=== PATIENT | male | born 1990 | race Two or more races ===

== ENCOUNTER 2016-08-20 18:52 | Emergency (ER) | payer MEDICAID, OTHER ==
[~2016-08-20] VITALS: Ht 172.7 cm; Wt 78.0 kg
[2016-08-20] MEDS ORDERED: SODIUM CHLORIDE 0.9% 1,000 ML IV ONE (20:59)
[2016-08-20] MEDS ORDERED: VISCOUS LIDOCAINE 2% 15 ML UDC PO STA (20:59)
[2016-08-20] MEDS ORDERED: FAMOTIDINE 20MG/2ML VIAL IV STA (20:59)
[2016-08-20] MEDS ORDERED: MAGNESIUM/ALUMINUM HYDROXIDE/SIMETHICONE 30ML UDC PO STA (20:59)
[2016-08-20] MEDS ORDERED: KETOROLAC 30MG/ML VIAL IV STA (20:59)
[2016-08-20] MEDS ORDERED: ONDANSETRON HCL 4MG/2ML VIAL IV ONE (21:00)
[2016-08-20 22:45] VITALS: BP 121/69
== END 2016-08-20 22:58 | disposition home or self-care (01) ==
LOC: ER 20:56
DX: K21.9 Gastro-esophageal reflux disease without esophagitis (principal)
CPT/HCPCS: 96361; 96374; 96375; 99284; J1885; J2405; J3490; J7030; Z7610

== ENCOUNTER 2022-01-07 20:36 | Emergency (ER) | payer MEDICAID, OTHER ==
[~2022-01-07] VITALS: Ht 172.7 cm; Wt 80.1 kg
[2022-01-07] MEDS ORDERED: ACETAMINOPHEN WITH CODEINE 300/30MG TABLET PO STA (23:55)
[2022-01-07] MEDS ORDERED: KETOROLAC 60MG/2ML VIAL IM STA (23:55)
[2022-01-08] MEDS ORDERED: T3 PO (01:40)
[2022-01-08] MEDS ORDERED: NAPR-681 PO (01:40)
[2022-01-08 02:10] VITALS: BP 128/72
== END 2022-01-08 02:12 | disposition home or self-care (01) ==
LOC: ER 20:36
DX: M54.50 Low back pain, unspecified (principal)
CPT/HCPCS: 72100; 96372; 99283; J1885

== ENCOUNTER 2024-08-02 22:38 | Emergency (ER) | payer OTHER ==
[~2024-08-02] VITALS: Ht 172.7 cm; Wt 86.0 kg
[~2024-08-02 22:38] MED LIST: NAPR-681 PO; T3 PO
[2024-08-02 23:09] VITALS: BP 140/88; TEMP 36.8; O2SAT 100
[2024-08-02 23:13] VITALS: PULSE 125; RESP 20; O2SAT 100
[2024-08-02 23:43] LABS: HEMATOCRIT. 43.7 % (42.0-52.0); HEMOGLOBIN. 14.8 g/dL (14.0-18.0); MEAN CORPUSCULAR HEMOGLOBIN 29.2 pg (28.0-32.0); MEAN CORPUSCULAR HGB CONC 33.9 g/dL (31.0-37.0); MEAN CORPUSCULAR VOLUME 86.1 fL (80.0-94.0); MEAN PLATELET VOLUME 7.1 fl (7.4-10.4); PLATELET 365 x1000/uL (130-400); RED BLOOD CELL COUNT 5.07 mill/uL (4.7-6.1); RED CELL DISTRIBUTION WIDTH 13.6 % (11.6-14.6); WHITE BLOOD COUNT 10.1 x1000/uL (4.5-11.0)
[2024-08-02 23:46] LABS: DIFFERENTIAL COMMENT 1
[2024-08-02 23:51] LABS: CHLORIDE 105 mEq/L (98-107); POTASSIUM 4.1 mEq/L (3.5-5.1); SODIUM 141 mEq/L (136-145)
[2024-08-02 23:52] LABS: CARBON DIOXIDE 26 mEq/L (21-32)
[2024-08-02 23:53] LABS: CALCIUM 9.6 mg/dL (8.7-10.4)
[2024-08-02 23:57] LABS: CREATININE 1.1 mg/dL (0.6-1.3)
[2024-08-02 23:58] LABS: GLUCOSE 214 mg/dL (70-105); TROPONIN I HIGH SENSITIVITY 27 ng/L (3.0-53); UREA NITROGEN BLOOD 18 mg/dL (9-23)
[2024-08-03 00:22] LABS: PLATELET ESTIMATE NORMAL
[2024-08-03 00:25] LABS: *AMPHETAMINES SCREEN URINE NEGATIVE (NEGATIVE); *BARBITURATES SCREEN URINE NEGATIVE (NEGATIVE); *BENZODIAZEPINES SCREEN URINE NEGATIVE (NEGATIVE); *COCAINE SCREEN URINE NEGATIVE (NEGATIVE)
[2024-08-03 00:26] LABS: CANNABINOID URINE SCREEN NEGATIVE (NEGATIVE); ECSTASY MDMA SCREEN URINE NEGATIVE (NEGATIVE); METHADONE URINE SCREEN NEGATIVE (NEGATIVE); OPIATES URINE SCREEN NEGATIVE (NEGATIVE); PHENCYCLIDINE URINE SCREEN NEGATIVE (NEGATIVE)
[2024-08-03 01:02] LABS: CLARITY URINE CLEAR (CLEAR); COLOR URINE YELLOW (YELLOW); GLUCOSE URINE 2+ (NEGATIVE); KETONES URINE 1+ (NEGATIVE); LEUKOCYTE ESTERASE URINE NEGATIVE (NEGATIVE); NITRITE URINE NEGATIVE (NEGATIVE); OCCULT BLOOD URINE NEGATIVE (NEGATIVE); PROTEIN URINE TRACE (NEGATIVE); SPECIFIC GRAVITY URINE 1.042 (1.005-1.030)
[2024-08-03 01:23] LABS: BACTERIA URINE NONE SEEN; RBC URINE 0-2 /hpf (0-2); SQUAMOUS EPITHELIAL CELL URINE NONE SEEN /lpf (RARE/1+); WBC URINE 0-2 /hpf (0-2)
[2024-08-03 02:03] LABS: TROPONIN I HIGH SENSITIVITY 26 ng/L (3.0-53)
== END 2024-08-03 02:22 | disposition home or self-care (01) ==
LOC: ER 22:38
DX: R07.89 Other chest pain (principal); F10.90 Alcohol use, unspecified, uncomplicated; Z79.2 Long term (current) use of antibiotics; Z79.899 Other long term (current) drug therapy; Y90.9 Presence of alcohol in blood, level not specified
CPT/HCPCS: 36415; 71045; 80048; 80305; 81003; 84484; 85025; 93005; 99285